=== PATIENT | female | born 1950 | race Caucasian/White ===

== ENCOUNTER 2018-06-03 15:46 | Emergency (ER) | payer MEDICARE ==
[2018-06-03] MEDS ORDERED: Ondansetron PF 4 MG/2 ML Vial ONE (16:15)
--- NOTE | 2018-06-03 16:37 | RAD ---
CHEST ONE VIEW: 06/03/18 HISTORY: Syncope. COMPARISON: 03/06/03. FINDINGS: The cardiac silhouette is magnified by projection. Pulmonary vasculature upper limits of normal. Medi astinum is midline with aortic calcification. No lobar consolidation or evidence of pneumothorax. Car diac monitor leads overlie the chest. Degenerative changes of the shoulders. IMPRESSION: Atherosclerosis. No active cardiopulmonary abnormalities are otherwise demonstrated. POS: [facility]
[2018-06-03 16:49] LABS: #Basophils 0.1 thou/uL (0.0-0.2); #Eosinphils 0.1 thou/uL (0.0-0.7); #Lymphocytes 1.3 thou/uL (1.20-3.40); #Neutrophils 7.5 thou/uL (1.40-6.50); %Basophils 0.8 % (0.0-1.0); %Eosinophils 1.4 % (0.0-10.0); %Lymphocytes 13.2 % (21.0-51.0); %Monocytes 9.8 % (0.0-10.0); %Neutrophils 74.8 % (42.0-75.0); Hemoglobin 11.4 g/dL (12.0-16.0); Mean Corpuscular HGB CONC 32.8 g/dL (32.0-36.0); Mean Corpuscular Hemoglobin 30.6 pg (27.0-31.0); Mean Corpuscular Volume 93.1 fL (78.0-98.0); Mean Platelet Volume 7.6 fL (7.4-10.4); Platelet Count 217 thou/uL (130-400); RBC Distribution Width 12.1 % (11.5-14.5); Red Blood Cell (RBC) Count 3.73 mill/uL (4.20-5.40)
[2018-06-03 17:08] LABS: ALT (SGPT) 19 U/L (8-55); AST (SGOT) 25 U/L (5-34); Albumin 3.8 g/dL (3.4-4.8); Alkaline Phosphatase 84 U/L (40-150); Anion Gap 9 mmol/L (10-20); BUN (Urea Nitrogen) 16 mg/dL (9.8-20.1); Bilirubin, Total 0.3 mg/dL (0.2-1.2); Calc. Creatinine Clearance 0 mL/min (70-130); Calcium 8.4 mg/dL (7.8-10.44); Carbon Dioxide 25 mmol/L (23-31); Chloride 106 mmol/L (98-107); Estimated GFR-MDRD 46; Globulin 2.1 g/dL (2.4-3.5); Glucose 109 mg/dL (80-115); Lipase 21 U/L (8-78); Potassium 3.9 mmol/L (3.5-5.1); Protein, Total 5.9 g/dL (6.0-8.3); Sodium 136 mmol/L (136-145)
[2018-06-03 17:12] LABS: CKMB 1.9 ng/mL (0-6.6); Troponin I Less than 0.010 ng/mL (< 0.028)
[2018-06-03 18:30] LABS: Bilirubin Negative (Negative); Blood, Urine Negative (Negative); Clarity CLEAR (Clear); Glucose, Urine (Dipstick) Negative (Negative); Leukocyte Moderate (Negative); Nitrite Negative (Negative); Protein, Urine (Dipstick) Negative (Neg-Trace); Specific Gravity, Urine 1.012 (1.002-1.036); Urobilinogen 0.2 mg/dL (0.2-1.0); pH, Urine 6.5 (5.0-9.0)
[2018-06-03 18:32] LABS: Bacteria/HPF None Seen HPF (None Seen); Hyaline Casts/LPF 0-3 HYALINE CAST LPF (0-3 Hyaline); Pathc Cast-AUWi Flag 0.58 (0-2.49); RBC/HPF 0-3 HPF (0-3); Squamous Epithelial 0-3 HPF (0-3); WBC/HPF 0-3 HPF (0-3)
== END 2018-06-03 19:10 | disposition home or self-care (01) ==
LOC: ERS 15:46
DX: E86.0 Dehydration (principal); R55 Syncope and collapse; I10 Essential (primary) hypertension; E78.5 Hyperlipidemia, unspecified; Z79.899 Other long term (current) drug therapy; Z79.891 Long term (current) use of opiate analgesic; Z79.82 Long term (current) use of aspirin
CPT/HCPCS: 36415; 71045; 80053; 81003; 81015; 82553; 83690; 84484; 85025; 93005; 96360; 96361; J2405

== ENCOUNTER 2018-08-29 14:42 | Outpatient (CLI) | payer MEDICARE ==
--- NOTE | 2018-08-29 15:38 | RAD ---
TWO VIEWS CHEST: HISTORY: Cough. FINDINGS: PA and lateral views of the chest were obtained on 08/29/2018. Comparison is made to previous exam fr om 06/04/2018. Two views chest demonstrate an area of patchy density seen on the frontal view of the chest in the le ft lung base adjacent to the apical aspect of the heart. This may represent an area of scar. There is also an area of density seen on the lateral view along the lung bases. This may represent an area of atelectasis, pneumonia, or mass. I do recommend correlation with contrast-enhanced CT of the [address] to better evaluate the lung bases as I cannot exclude the possibility of pathology. IMPRESSION: Possible area of scar in the lingula with additional areas of density in the lung bases. Further wor kup using CT recommended. POS: [facility]
== END 2018-08-29 14:43 | disposition home or self-care (01) ==
LOC: RAD-FRANK 14:42
PROVIDERS: ATTEND Nurse Practitioner Family
DX: J20.9 Acute bronchitis, unspecified (principal); J98.4 Other disorders of lung
CPT/HCPCS: 71046